=== PATIENT | male | born 1995 | race Two or more races ===

== ENCOUNTER 2016-08-12 20:38 | Emergency (ER) | payer SELFPAY ==
[~2016-08-12] VITALS: Ht 200.7 cm; Wt 150.6 kg
[2016-08-12 20:42] VITALS: BP 154/97
[2016-08-13] MEDS ORDERED: ACETAMINOPHEN/CODEINE#3 (300/30mg) TAB PO ONE (00:45)
== END 2016-08-13 01:09 | disposition home or self-care (01) ==
LOC: ER 20:43
DX: G43.909 Migraine, unspecified, not intractable, without status migrainosus (principal); H53.149 Visual discomfort, unspecified
CPT/HCPCS: 70450

== ENCOUNTER 2017-12-06 20:50 | Emergency (ER) | payer MEDICAID, OTHER ==
[~2017-12-06] VITALS: Ht 200.7 cm; Wt 171.9 kg
[2017-12-06 21:03] VITALS: BP 126/69
[2017-12-06] MEDS ORDERED: KETOROLAC TROMETH 60MG/2ML VIAL IM ONE (23:00)
[2017-12-06] MEDS ORDERED: HYDROcodone-ACET 10/325MG TAB PO ONE (23:00)
== END 2017-12-06 23:27 | disposition home or self-care (01) ==
LOC: ER 20:50
DX: S02.2XXA Fracture of nasal bones, initial encounter for closed fracture (principal); W50.0XXA Accidental hit or strike by another person, initial encounter; Y93.89 Activity, other specified; Y99.8 Other external cause status; Y92.89 Other specified places as the place of occurrence of the external cause
CPT/HCPCS: 70486; 96372; 99284; J1885

== ENCOUNTER 2020-02-06 15:29 | Emergency (ER) | payer SELFPAY ==
[~2020-02-06] VITALS: Ht 203.2 cm; Wt 219.1 kg
[2020-02-06 16:14] VITALS: BP 185/76
== END 2020-02-06 17:27 | disposition home or self-care (01) ==
LOC: ER 15:29
DX: M54.10 Radiculopathy, site unspecified (principal)
CPT/HCPCS: 93971

== ENCOUNTER 2020-08-10 14:22 | Emergency (ER) | payer SELFPAY ==
[~2020-08-10] VITALS: Ht 205.7 cm; Wt 213.2 kg
[2020-08-10] MEDS ORDERED: KETOROLAC TROMETH 60MG/2ML VIAL IM ONE (16:15)
[2020-08-10 16:32] VITALS: BP 120/90
== END 2020-08-10 18:08 | disposition home or self-care (01) ==
LOC: EDBD 14:22 → ER 14:22
DX: S46.912A Strain of unspecified muscle, fascia and tendon at shoulder and upper arm level, left arm, initial encounter (principal); S20.212A Contusion of left front wall of thorax, initial encounter; V49.9XXA Car occupant (driver) (passenger) injured in unspecified traffic accident, initial encounter; Y93.89 Activity, other specified; Y92.89 Other specified places as the place of occurrence of the external cause; Y99.8 Other external cause status
CPT/HCPCS: 71046; 73030; 96372; 99284; J1885

== ENCOUNTER 2022-10-24 11:51 | Emergency (ER) | payer MEDICAID, OTHER ==
[~2022-10-24] VITALS: Ht 205.7 cm; Wt 179.2 kg
[2022-10-24 12:31] VITALS: BP 154/106
[2022-10-24] MEDS ORDERED: HYDROcodone-ACET 10/325MG TAB PO ONE (13:00)
[2022-10-24] MEDS ORDERED: KETOROLAC TROMETH 60MG/2ML VIAL IM ONE (13:00)
[2022-10-24] MEDS ORDERED: IBUP-1456 PO (13:38)
[2022-10-24] MEDS ORDERED: METH-1182 PO (13:38)
== END 2022-10-24 13:50 | disposition home or self-care (01) ==
LOC: ER 11:51
DX: S39.012A Strain of muscle, fascia and tendon of lower back, initial encounter (principal); Z88.6 Allergy status to analgesic agent; W18.39XA Other fall on same level, initial encounter; Y93.61 Activity, american tackle football; Y92.89 Other specified places as the place of occurrence of the external cause; Y99.8 Other external cause status
CPT/HCPCS: 73502; 96372; 99283; J1885

== ENCOUNTER 2024-10-10 16:15 | Emergency (ER) | payer MEDICAID ==
[~2024-10-10] VITALS: Ht 205.7 cm; Wt 179.9 kg
[~2024-10-10 16:15] MED LIST: IBUP-1456 PO; METH-1182 PO
[2024-10-10] MEDS ORDERED: IBUP-1456 PO (18:39)
[2024-10-10] MEDS ORDERED: CYCL-837 PO (18:39)
--- NOTE | 2024-10-10 18:39 | ED.PDOC ---
Musculoskeletal HPI Comments 29 year old male presents to ER with complaints of left leg pain x 1 week. Patient with PMH of sciatica reports that he's been experiencing pain centralized to left buttock x 1 week. Notes he was seen for the same symptoms at [facility] on 09/28/24, diagnosed with "sciatica" and states his symptoms fully improved but then came back 1 week ago. He rates his current pain a 10/10 centralized to left buttock with radiation down posterior left leg. Notes he has been taking methocarbamol with slight relief. Patient presents to ER ambulatory on arrival, with steady gait, in no distress. Denies fever, back pain, hip pain, trauma/falls, skin changes, numbness/tingling, calf pain, night sweats, changes in urination/BM or any further symptoms/complaints Chief Complaint: Lower Extremity Time Seen by MD: 18:06 Primary Care Provider: YASH Cast Notes: Nurses Notes, Medications, Allergies Allergies: Coded Allergies: NO KNOWN ALLERGIES (Unverified , 11/29/14) Home Meds Active Scripts Ibuprofen (Ibuprofen) 800 Mg Tab, 1 TAB PO TID PRN, #30 TAB 0 Refills Prov:IVAN HERNANDEZ 10/10/24 Cyclobenzaprine Hcl (Cyclobenzaprine Hcl) 5 Mg Tab, 1 TAB PO QHSP, #14 TAB 0 Refills Prov:IVAN HERNANDEZ 10/10/24 Methocarbamol (Methocarbamol) 750 Mg Tab, 750 MG PO BID, #20 TAB Prov:SIMBA SINGLETARY 10/24/22 Ibuprofen (Ibuprofen) 800 Mg Tab, 1 TAB PO TID, #30 TAB Prov:SIMBA SINGLETARY 10/24/22 Information Source: Patient Mode of Arrival: Ambulatory Past Medical History Past Medical History (Other): Sciatica Surgical History: Denies all surgeries Family History Family History: Unknown Social History Smoker: Non-Smoker Alcohol: Denies ETOH Use Drugs: Denies Drug Use Lives In: Home Constitutional: denies: chills, diaphoresis, fatigue, fever, malaise, sweats, weakness, others EENTM: denies: blurred vision, double vision, ear bleeding, ear discharge, ear drainage, ear pain, ear ringing, eye pain, eye redness, hearing loss, mouth pain, mouth swelling, nasal discharge, nose bleeding, nose congestion, nose pain, photophobia, tearing, throat pain, throat swelling, voice changes, others Respiratory: denies: cough, hemoptysis, orthopnea, SOB at rest, shortness of breath, SOB with excertion, stridor, wheezing, others Cardiovascular: denies: chest pain, dizzy spells, diaphoresis, Dyspnea on exertion, edema, irregular heart beat, left arm pain, lightheadedness, palpitations, PND, syncope, others Gastrointestinal: denies: abdomen distended, abdominal pain, blood streaked bowels, constipated, diarrhea, dysphagia, difficulty swallowing, hematemesis, melena, nausea, poor appetite, poor fluid intake, rectal bleeding, rectal pain, vomiting, others Genitourinary: denies: burning, dysuria, flank pain, frequency, hematuria, incontinence, penile discharge, penile sore, pain, testicle pain, testicle swelling, urgency, others Neurological: denies: dizziness, fainting, headache, left sided numbness, left sided weakness, numbness, paresthesia, pre-existing deficit, right sided numbness, right sided weakness, seizure, speech problems, tingling, tremors, weakness, others Musculoskeletal: reports: others (As stated in HPI) Integumetry: denies: bruises, change in color, change in hair/nails, dryness, laceration, lesions, lumps, rash, wounds, others Allergic/Immunocompromised: denies: Difficulty Healing, Frequent Infections, Hives, Itching, others Hematologic/Lymphatic: denies: anemia, blood clots, easy bleeding, easy bruising, swollen glands, others Endocrine: denies: excessive hunger, excessive sweating, excessive thirst, excessive urination, flushing, intolerance to cold, intolerance to heat, unexplained weight gain, unexplained weight loss, others Psychiatric: denies: anxiety, bipolar disorder, depression, hopeless, panic disorder, schizophrenia, sleepless, suicidal, others Physical Exam General Appearance: No Apparent Distress, Obese HEENT: PERRL/EOMI Neck: Full Range of Motion, Non-Tender, Normal Respiratory: Chest Non-Tender, Lungs Clear, No Accessory Muscle Use, No Respiratory Distress, Normal Breath Sounds Cardiovascular: No Murmur, No Gallop, Regular Rate/Rhythm Breast Exam: Deferred Gastrointestinal: Non Tender, No Pulsatile Mass, Soft Genitalia: Deferred Pelvic: Deferred Rectal: Deferred Extremities: No calf tenderness, Normal capillary refill, Normal range of mot ion Musculoskeletal : Extremity Location: Other (TTP centralized to left buttock noted. No TTP to left hip or tenderness to spine appreciated. Steady gait noted) Neurologic: Alert, No Motor Deficits, Normal Affect, Normal Mood, No Sensory Deficits Cerebellar Function: Normal Reflexes: Normal Skin: Dry, Normal Color, Warm Peripheral Pulses: 2+ femoral (R), 2+ femoral (L), 2+ dorsalis pedis (R), 2+ dorsalis pedis (L), 2+ Radial (R), 2+ Radial (L), 2+ Brachial (R), 2+ Brachial (L) Lymphatic: No Adenopathy Was a procedure done? Was a procedure done?: No Sedation Sedation?: No Differential Diagnosis EXT Differential Diagnosis: Fracture, Dislocation, Strain, Neurovascular injury X-Ray, Labs, Meds, VS Vital Signs Date Time Temp Pulse Resp B/P (MAP) Pulse Ox O2 Delivery O2 Flow Rate FiO2 10/10/24 16:20 98.7 131 20 152/92 (112) 96 98.7 Toradol 60 mg IM ordered Patient neurovascularly intact and reported improvement in symptoms prior to discharge Advised on rest/ no strenuous activity Advised to follow up with PCP in 1-2 days Patient verbalized understanding and agreeable with current plan of care Advised to return to ER immediately if symptoms worsen Time of 1ST Reevaluation: 18:12 Reevaluation 1ST: N/A Patient Education/Counseling: Diagnosis, Treatment, Prognosis, Need For Follow Up Family Education/Counseling: No Family Present Departure 1 Departure Time of Disposition: 18:32 Impression: Primary Impression: Sciatica of left side Disposition: 01 HOME / SELF CARE / HOMELESS Condition: Stable e-Prescriptions Ibuprofen (Ibuprofen) 800 Mg Tab 1 TAB PO TID PRN, #30 TAB 0 Refills Prov: IVAN HERNANDEZ 10/10/24 Cyclobenzaprine Hcl (Cyclobenzaprine Hcl) 5 Mg Tab 1 TAB PO QHSP, #14 TAB 0 Refills Prov: IVAN HERNANDEZ 10/10/24 Discharged With: Friend Critical Care Note Critical Care Time?: No Stability Stability form required: No Heart Score Heart Score: Heart Score Response (Comments) Value History N/A 0 EKG N/A 0 Age N/A 0 Risk Factors N/A 0 Troponin N/A 0 Total 0 IVAN HERNANDEZ Oct 10, 2024 18:39
[2024-10-10] MEDS: KETOROLAC TROMETH 60MG/2ML VIAL IM ONE (18:41)
[2024-10-10 18:44] VITALS: BP 147/68; PULSE 116; RESP 18; TEMP 98.7; O2SAT 97
== END 2024-10-10 18:49 | disposition home or self-care (01) ==
LOC: ER 16:15
DX: M54.32 Sciatica, left side (principal); M79.605 Pain in left leg
CPT/HCPCS: 96372; 99283; J1885